=== PATIENT | female | born 1980 | race Caucasian/White ===

== ENCOUNTER 2019-05-10 17:40 | Outpatient (CLI) | payer OTHER, SELFPAY ==
--- NOTE | ~2019-05-10 | CT_ITS ---
EXAMINATION: CT soft tissue neck w con DATE: 05/10/2019 18:22 INDICATION: Neck mass TECHNIQUE: Computed tomography (CT) of the neck was performed with 75 cc of Omnipaque 350 intravenous contrast. The dose-length product (DLP) was 594.98 mGy-cm. Automated exposure control and iterative reconstruction technique were employed. COMPARISON: None FINDINGS: There is a 3.3 x 2.3 cm heterogeneous, predominantly solid, enhancing nodule of the right t hyroid lobe. This exerts minimal mass effect on trachea. The left thyroid lobe appears unremarkable. There are no pathologically enlarged lymph nodes. The visualized osseous structures are unremarkable. The lung apices are clear. IMPRESSION: 1. 3.3 cm nodule of the right thyroid lobe accounting for the patient's neck mass. Recommend further evaluation with fine-needle aspiration. Reviewed, dictated and finalized at location [facility]. IMPRESSION: 1. 3.3 cm nodule of the right thyroid lobe accounting for the patient's neck ma ss. Recommend further evaluation with fine-needle aspiration.
== END 2019-05-10 17:41 | disposition home or self-care (01) ==
LOC: ANHIMG 17:48
PROVIDERS: PCP Family Medicine; Visit Provider Family Medicine
DX: R22.1 Localized swelling, mass and lump, neck (principal)
CPT/HCPCS: 70491; Q9967

== ENCOUNTER → 2020-05-08 12:56 | Outpatient (CLI) | payer OTHER, SELFPAY ==
--- NOTE | ~2020-05-08 | CT_ITS ---
EXAMINATION: CT sinus wo con DATE: 05/08/2020 13:08 INDICATION: Acute pansinusitis. Headaches. TECHNIQUE: Computed tomography (CT) of the paranasal sinuses was performed without contrast. Iterativ e reconstruction technique was employed. Exam dose: 274.70 mGy-cm total exam DLP. COMPARISON: None FINDINGS: There is prominent leftward deviation of the nasal septum. The nasal turbinates are symmetr ic and unremarkable. The ostiomeatal units are patent. The paranasal sinuses and mastoid air cells are normally developed and aerated. IMPRESSION: Prominent leftward deviation of nasal septum Patent paranasal sinuses, ostiomeatal units and mastoid air cells Reviewed, dictated and finalized at [facility]. Reviewed, dictated and finalized at location [facility].
== END ==
PROVIDERS: Visit Provider Otolaryngology
DX: J01.40 Acute pansinusitis, unspecified (principal)
CPT/HCPCS: 70486

== ENCOUNTER 2021-07-02 12:15 | Outpatient (CLI) | payer OTHER, SELFPAY ==
--- NOTE | ~2021-07-02 | MMUS_ITS ---
EXAMINATION: MM diagnostic felipe BI w annette, US breast BI complete HISTORY: Right breast pain TECHNIQUE: Additional 3-D tomosynthesis images of the breasts were performed and synthetic 2-D images were generated. CAD analysis was submitted and interpreted. High resolution complete bilateral breas t ultrasound was performed. COMPARISON: Comparison to multiple prior studies sequentially, with oldest reviewed study dated 12/24. BREAST PARENCHYMAL COMPOSITION: The breasts are heterogenously dense, which may obscure small masses FINDINGS: MAMMOGRAPHIC FINDINGS: There are benign-appearing right breast calcifications. No mammographic evidence for malignancy in th e right breast. There are multiple asymmetries in the upper aspect of the left breast. No suspicious calcifications or architectural distortion. ULTRASOUND: Complete bilateral US of all 4 quadrants of the breasts and retroareolar region was reviewed. Right breast ultrasound: Multiple right breast cysts are identified. At 12:00, 3 cm from the nipple t here is an oval hypoechoic mass measuring 7 mm without significant posterior features or internal vas cularity. At 11:00, 5 cm from nipple there is an oval hypoechoic mass with parallel orientation, no s ignificant posterior features and no internal vascularity. Left breast: There are multiple left breast cysts. At 11:00, 5 cm from the nipple, there is an oval c ircumscribed hypoechoic mass measuring 1.2 cm maximum dimension with parallel orientation, no interna l vascularity and no significant posterior features. IMPRESSION: 1. Probable benign bilateral breast masses by ultrasound. Multiple additional benign cysts are presen t bilaterally which accounts for asymmetry seen on mammography. 2. Recommend 6 month follow-up diagnostic left mammogram and bilateral targeted ultrasound. BI-RADS category 3, probably benign findings. Reviewed, dictated and finalized at location A. IMPRESSION: 1. Probable benign bilateral breast masses by ultrasound. Multiple additional b enign cysts are present bilaterally which accounts for asymmetry seen on mammog juve. 2. Recommend 6 month follow-up diagnostic left mammogram and bilateral targeted ultrasound. BI-RADS category 3, probably benign findings.
== END 2021-07-02 12:16 | disposition home or self-care (01) ==
PROVIDERS: Visit Provider Nurse Practitioner Obstetrics & Gynecology
DX: N64.4 Mastodynia (principal)
CPT/HCPCS: 76641; 77062; 77066; G0279